=== PATIENT | female | born 1945 | race Caucasian/White ===

== ENCOUNTER 2019-12-02 10:20 | Emergency (ER) | payer MEDICARE, SELFPAY ==
[2019-12-02 10:33] VITALS: BP 122/76; PULSE 91; RESP 20; TEMP 37.1; O2SAT 98
--- NOTE | 2019-12-02 10:58 | ED.GENADULT ---
HPI - General Adult General Chief complaint: Upper Respiratory Infection Stated complaint: chest congestion/headache/fever Time Seen by Provider: 12/02/19 10:58 Source: patient and RN notes reviewed Mode of arrival: ambulatory Limitations: no limitations History of Present Illness HPI narrative: 74-year-old female presents with complaints of upper respiratory infection symptoms, fever, body aches, cough, chest congestion, and intermittent headaches (not the worst of her life) for the past 2 days. Tramadol and Theraflu cough and cold with little relief. Lani is concerned since she has had several Influenza exposures over the last 3-4 days. Dry cough with intermittent productive cough (yellow phlegm). Rhinorrhea and nasal congestion. No exacerbating factors. Low-grade fevers, 100.9F, orally without chills or sweats. No nausea, vomiting, and abdominal pain. Tolerating po intake well. Denies chest pain, dyspnea, coughing up blood, difficulty swallowing, jaw pain, dental pain, facial pain, foreign body sensation, and rash. Remains active. Some parts of this dictation were generated by voice recognition software and may contain typographical and/or grammatical inaccuracies. Related Data Home Medications Medication Instructions Recorded Confirmed Theraflu Flu-Sore Throat 12/02/19 gabapentin 400 mg PO BID 12/02/19 12/02/19 meloxicam [Mobic] 15 mg PO DAILY 12/02/19 12/02/19 tramadol 50 mg PO Q6H PRN 12/02/19 12/02/19 Allergies Allergy/AdvReac Type Severity Reaction Status Date / Time rosuvastatin Allergy Unknown Other Verified 12/02/19 10:44 Review of Systems Review of Systems: Narrative: CONSTITUTIONAL: Complains of low-grade fevers. Denies chills, sweats. EYES: Denies visual changes, redness, discharge. ENT: Complains of rhinorrhea, congestion. Denies sore throat, otalgia. CARDIOVASCULAR: Denies chest pain, palpitations, edema. RESPIRATORY: Denies dyspnea, wheezing. Complains of dry cough, intermittent productive cough. GASTROINTESTINAL: Denies abdominal pain, nausea, vomiting, diarrhea. GENITOURINARY: Denies dysuria, hematuria, abnormal discharge. SKIN: Denies rash or itching. MUSCULOSKELETAL: Denies acute back pain, joint pain. Complains of myalgia. NEUROLOGIC: Denies numbness or focal weakness. PSYCHIATRIC: Denies anxiety or depression. Complains of intermittent VERA. All systems reviewed & are unremarkable except as noted in HPI and below. [facility] Past Medical History Medical History (Updated 12/03/19 @ 00:01 by Tessy Griffiths) Breast cancer Cardiovascular accident History of right foot drop Meningitis Menopause Neuropathy Surgical History Surgical History (Updated 12/02/19 @ 11:26 by SAMUEL Malik) History of bilateral mastectomy History of reconstruction of both breasts History of total right knee replacement Family History Family History (Updated 12/02/19 @ 11:27 by SAMUEL Malik) Mother Breast cancer Father Cerebrovascular accident Social History Social History (Updated 12/02/19 @ 11:28 by SAMUEL Malik) Smoking status: Current every day smoker Alcohol intake: current Substance use: never Living arrangements: with family Occupation/Education: retired Gender identity (if verbalized by the patient): Female Comments At time of signature, agree with nurse past medical, surgical, social, and family history. There is no relevant family history pertinent to the presenting complaint. Exam Narrative: Exam Narrative: GENERAL: This is a well-nourished, well-developed patient, in no apparent distress. Speaks in full sentences and ambulates with steady gait without dyspnea. HEAD: normocephalic, atraumatic. EYES: PERRL. Sclera clear/white. Vision is grossly intact. EARS: External ears normal, auditory canals clear and without drainage, TMs normal without perforation. Hearing grossly intact. NOSE: External nose normal with n
== END 2019-12-02 11:20 | disposition home or self-care (01) ==
PROVIDERS: Emergency Provider Nurse Practitioner Family
DX: J06.9 Acute upper respiratory infection, unspecified (principal); F17.200 Nicotine dependence, unspecified, uncomplicated; Z85.3 Personal history of malignant neoplasm of breast; Z90.13 Acquired absence of bilateral breasts and nipples; Z86.73 Personal history of transient ischemic attack (TIA), and cerebral infarction without residual deficits; G62.9 Polyneuropathy, unspecified; Z96.651 Presence of right artificial knee joint; Z86.61 Personal history of infections of the central nervous system
CPT/HCPCS: 87804; 99213; G0463

== ENCOUNTER 2023-08-28 20:01 | Emergency (ER) | payer MEDICARE, SELFPAY ==
--- NOTE | ~2023-08-28 | CT_ITS ---
EXAMINATION: CT abdomen pelvis wo con DATE: 08/28/2023 22:04 INDICATION: Abdominal pain and vomiting. Possible kidney stone. TECHNIQUE: Computed tomography (CT) of the abdomen and pelvis was performed without intravenous contr ast. Automated exposure control and iterative reconstruction technique were employed. The dose-length product was 446.53 mGy-cm. COMPARISON: None FINDINGS: 9 x 6 mm pulmonary nodule at the lingula. Arch size is normal. No pericardial or pleural effusion. Pa rtially visualized bilateral breast implants. Liver, gallbladder, pancreas and left adrenal gland are normal. 2.5 cm right adrenal mass measuring H.U. 18. A few splenic calcific lesions consistent with old granulomatous disease. Kidneys and ureters are normal with no urolithiasis, hydroureteronephrosis or perinephric/ureteral stranding. Bladder is normal. Anteverted uterus and bilateral adnexa are unr emarkable. Bowels including the appendix are normal. No free intraperitoneal gas or fluid. No patholo gically enlarged abdominal or pelvic lymphadenopathy. 25 degree lumbar levoscoliosis with severe spon dylosis. Additional severe spondylosis at T10-T11. IMPRESSION: 1. No urolithiasis or acute intra-abdominal/pelvic process. 2. Indeterminate 9 x 6 mm pulmonary nodule at the lingula. If prior outside imaging isn't available t o confirm stability would recommend follow-up 6-12 month low-dose noncontrast chest CT for further ev aluation. 3. 2.5 cm indeterminate right adrenal mass. In the absence of a known history of malignancy this most likely to represent an adenoma but would recommend further evaluation with either pre and postcontra st adrenal protocol CT or MRI. Reviewed, dictated and finalized at location A. TECHNICIAN IMPRESSION: 1. No urolithiasis or acute intra-abdominal/pelvic process. 2. Indeterminate 9 x 6 mm pulmonary nodule at the lingula. If prior outside seema ging isn't available to confirm stability would recommend follow-up 6-12 month low-dose noncontrast chest CT for further evaluation. 3. 2.5 cm indeterminate right adrenal mass. In the absence of a known history o f malignancy this most likely to represent an adenoma but would recommend furth er evaluation with either pre and postcontrast adrenal protocol CT or MRI.
[2023-08-28 20:06] VITALS: BP 125/60; PULSE 81; RESP 19; TEMP 36.3; O2SAT 100
[2023-08-28 21:06] VITALS: BP 135/72; PULSE 71; RESP 18; TEMP 37.1; O2SAT 100
[2023-08-28 21:31] LABS: Basophils Percent Auto 0.3 % (0.2-1.2); Eosinophils Percent Auto 0.2 % (0-4.4); Hematocrit 40.3 % (37.0-47.0); Hemoglobin 13.2 g/dL (12.0-15.0); Immature Granulocyte Absolute 0.02 K/mm3 (0.00-0.031); Immature Granulocyte Percent A 0.3 % (0-0.5); Lymphocytes Absolute Auto 0.85 K/mm3 (0.9-3.2); Lymphocytes Percent Auto 14.4 % (18.3-44.2); Mean Corpuscular HGB Conc 32.8 g/dl (32-36); Mean Corpuscular Hemoglobin 28.3 pg (26-34); Mean Corpuscular Volume 86.3 fl (80-100); Mean Platelet Volume 9.9 fl (7.4-10.4); Monocytes Absolute Auto 0.5 K/mm3 (0.1-0.6); Monocytes Percent Auto 8.1 % (2.6-8.5); Neutrophils Absolute Auto 4.5 K/mm3 (1.3-6.7); Neutrophils Percent Auto 76.7 % (45.5-73.1); Platelet Count Result 213 k/mm3 (150-375); Red Blood Count 4.67 M/mm3 (4.2-5.4); Red Cell Distribution Width 13.5 % (11.5-14.5); White Blood Count 5.9 K/mm3 (4.5-10.0)
[2023-08-28 21:41] LABS: Alanine Aminotransferase 62 U/L (6-35); Albumin Level 3.9 g/dL (3.5-5.1); Alkaline Phosphatase 84 U/L (38-126); Anion Gap 11 mmol/L (8-16); Aspartate Amino Transferase 54 U/L (14-36); Blood Urea Nitrogen 15 mg/dL (7-17); Calcium 8.7 mg/dL (8.4-10.2); Carbon Dioxide 18 mmol/L (22-30); Chloride 105 mmol/L (98-107); Estimated CRCL calculation 39 ml/min; Estimated Glomerular Filt Rate 54; Glucose 108 mg/dL (65-110); Lipase 75 U/L (23-300); Potassium 4.3 mmol/L (3.4-5.0); Sodium 134 mmol/L (137-145)
[2023-08-28 21:42] LABS: Appearance Urine Clear (Clear); Bacteria Urine None Seen /hpf; Bilirubin Urine Negative (Negative); Blood Urine Negative (Negative); Color Urine Yellow (Yellow); Glucose Urine UA Negative (Negative); Ketones Urine 3+ mg/dL (Negative); Leukocyte Esterase Ur Trace LEU/UL (Negative); Nitrate Urine Negative (Negative); Non Pathogenic Casts 0-2; Protein Urine Negative (Negative); Squamous Epithelial Cell Urine None seen /hpf (Few); WBC Urine 0-5 /hpf; pH Urine 7.5 (5.0-9.0)
[2023-08-28 21:46] LABS: Add Urine Microscopic? YES
[2023-08-28] MEDS: PROCHLORPERAZINE EDISYLATE 10 MG/2 ML VIAL IV PUSH (22:12)
[2023-08-28] MEDS: SODIUM CHLORIDE 0.9% IV 1,000 ML 999 ML IV CONT (22:12)
[2023-08-28 22:32] LABS: Lactic Acid Reflex 1.6 mmol/L (0.7-2.0)
[2023-08-28] MEDS: ONDANSETRON INJ 4 MG/2 ML VIAL IV PUSH (22:40)
[2023-08-28 22:42] VITALS: BP 143/66; PULSE 77; RESP 19; O2SAT 96
[2023-08-28 23:00] LABS: Influenza A QL RT-PCR Negative (Negative); Influenza B QL RT-PCR Negative (Negative); RSV RNA, RT-PCR Negative (Negative); SARS-CoV-2 RNA PCR Negative (Negative)
[2023-08-29] MEDS: ACETAMINOPHEN 500 MG TABLET 1000 MG (00:29)
--- NOTE | 2023-08-29 00:59 | ED.GENADULT ---
HPI - General Adult General Chief complaint: Nausea/Vomiting/Diarrhea Stated complaint: n/v Time Seen by Provider: 08/28/23 21:31 History of Present Illness HPI narrative: patient is a 78-year-old female who presents emerged from with chief complaint of nausea vomiting since 9:00 a.m. the patient started Keflex or Bactrim not quite sure reports that she is supposed to have a procedure by her surgeon in [place] for interstitial cystitis patient also reports she has been having chronic mucus drainage down the back of her throat and reports that she has had issues with heartburn. The patient denies fever Related Data Home Medications Medication Instructions Recorded Confirmed Theraflu Flu-Sore Throat 12/02/19 gabapentin 400 mg capsule 400 mg PO BID 12/02/19 12/02/19 tramadol 50 mg tablet 50 mg PO Q6H PRN Pain 12/02/19 12/02/19 Allergies Allergy/AdvReac Type Severity Reaction Status Date / Time rosuvastatin Allergy Unknown Other Verified 08/28/23 22:41 Review of Systems Review of Systems: A 10 system review of systems was completed on the patient and is negative except for what is stated in the HPI. Nursing and ancillary documentation was reviewed. [facility] Past Medical History Medical History Breast cancer Cardiovascular accident History of right foot drop Meningitis Menopause Neuropathy Surgical History Surgical History History of bilateral mastectomy History of reconstruction of both breasts History of total right knee replacement Family History Family History Mother Breast cancer Father Cerebrovascular accident Social History Social History Smoking status: Current every day smoker Alcohol intake: current Substance use: never Living arrangements: with family Occupation/Education: retired Gender identity (if verbalized by the patient): Female Exam Narrative: GENERAL: Well-appearing, well-nourished, and in no acute distress. HEAD: Normocephalic, atraumatic. EYES: PERRLA and EOMI. ENT: Nares clear, no rhinorrhea or epistaxis. Mucous membranes moist. NECK: Supple. CHEST: Clear to auscultation. No respiratory distress. HEART: Regular rate and rhythm. No murmur heard. Normal peripheral pulses. ABDOMEN: Soft, nontender, nondistended, normal active bowel sounds. EXTREMITIES: Normal range of motion. No edema. SKIN: Warm, dry, no rash. NEURO: No focal deficits. Alert and oriented x3. PSYCH: Normal mood and affect. Course Vital Signs Vital signs: Vital Signs Temperature 36.3 C L 08/28/23 20:06 Pulse Rate 81 08/28/23 20:06 Respiratory Rate 19 08/28/23 20:06 Blood Pressure 125/60 08/28/23 20:06 Pulse Oximetry 100 08/28/23 20:06 Oxygen Delivery Room Air 08/28/23 20:06 Temperature 37.1 C 08/28/23 21:06 Pulse Rate 77 08/28/23 22:42 Respiratory Rate 19 08/28/23 22:42 Blood Pressure 143/66 H 08/28/23 22:42 Pulse Oximetry 96 08/28/23 22:42 Oxygen Delivery Room Air 08/28/23 20:06 Medical Decision Making MDM Narrative Medical decision making narrative: defect status post bowel obstruction, kidney stone, UTI, dehydration CBC was within normal limits CMP showed minimally elevated transaminases CT scan of the abdomen pelvis showed no ureterolithiasis bowel obstruction or acute finding COVID flu and RSV or neck Vital Signs Vital Signs: Vital Signs Temperature 36.3 C L 08/28/23 20:06 Pulse Rate 81 08/28/23 20:06 Respiratory Rate 19 08/28/23 20:06 Blood Pressure 125/60 08/28/23 20:06 Pulse Oximetry 100 08/28/23 20:06 Oxygen Delivery Room Air 08/28/23 20:06 Temperature 37.1 C 08/28/23 21:06 Pulse Rate 77 08/28/23 22:42 R
[2023-08-29] MEDS: BELLADONNA ALK/PHENOB ELIX 10 ML, MAG HYDROX/ALUMINUM HYD/SIMETH 30 ML, LIDOCAINE HCL 2... PO (01:05)
[2023-08-29 01:07] VITALS: BP 134/70; PULSE 74; RESP 16; O2SAT 100
== END 2023-08-29 01:08 | disposition home or self-care (01) ==
PROVIDERS: Emergency Provider Emergency Medicine
DX: R11.2 Nausea with vomiting, unspecified (principal); F17.200 Nicotine dependence, unspecified, uncomplicated; Z85.3 Personal history of malignant neoplasm of breast; Z86.73 Personal history of transient ischemic attack (TIA), and cerebral infarction without residual deficits; Z20.822 Contact with and (suspected) exposure to COVID-19
CPT/HCPCS: 36415; 74176; 80053; 81001; 83605; 83690; 83735; 85025; 87637; 96361; 96374; 96375; 99284; A9270; J0780; J2405; J7030